=== PATIENT | female | born 1995 | race Caucasian/White ===

== ENCOUNTER 2019-01-14 01:40 | Emergency (ER) | payer SELFPAY ==
[2019-01-14] MEDS ORDERED: Ondansetron 4 MG Tab.DIS PO ONE (02:56)
--- NOTE | 2019-01-14 04:51 | EDM.PDOC ---
ED HPI GENERAL MEDICAL PROBLEM - General Chief Complaint: Abdominal Pain Stated Complaint: VOMITTING Time Seen by Provider: 01/14/19 03:00 - History of Present Illness INITIAL COMMENTS - FREE TEXT/NARRATIVE: HISTORY AND PHYSICAL: History of present illness: Patient's 23-year-old white female presents with a concern of abdominal pain she denies fever chills denies diarrhea denies other concern there's been no trauma Review of systems: As per history of present illness and below otherwise all systems reviewed and negative. Past medical history: As per history of present illness and as reviewed below otherwise noncontributory. Surgical history: As per history of present illness and as reviewed below otherwise noncontributory. Social history: No reported history of drug or alcohol abuse. Family history: As per history of present illness and as reviewed below otherwise noncontributory. Physical exam: HEENT: Atraumatic, normocephalic, pupils reactive, negative for conjunctival pallor or scleral icterus, mucous membranes moist, throat clear, neck supple, nontender, trachea midline. Lungs: Clear to auscultation, breath sounds equal bilaterally, chest nontender. Heart: S1S2, regular, negative for clicks, rubs, or JVD. Abdomen: Soft, nondistended, nontender. Negative for masses or hepatosplenomegaly. Negative for costovertebral tenderness. Pelvis: Stable nontender. Genitourinary: Deferred. Rectal: Deferred. Extremities: Atraumatic, negative for cords or calf pain. Neurovascular unremarkable. Neuro: Awake, alert, oriented. Cranial nerves II through XII unremarkable. Cerebellum unremarkable. Motor and sensory unremarkable throughout. Exam nonfocal. Diagnostics: CBC CMP hCG UA lipase Therapeutics: Zofran 4 mg by mouth Impression: #1 abdominal pain Definitive disposition and diagnosis as appropriate pending reevaluation and review of above. body aches/abdomen Pain Score (Numeric/FACES): 8 - Related Data Allergies Allergy/AdvReac Type Severity Reaction Status Date / Time No Known Allergies Allergy Verified 01/14/19 02:57 Home Meds: Home Meds . 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 Musculoskeletal History: Reports: None Neurological History: Reports: None Psychiatric History: Reports: Anxiety Endocrine/Metabolic History: Reports: None Hematologic History: Reports: None Immunologic History: Reports: None Oncologic (Cancer) History: Reports: None Dermatologic History: Reports: None - Past Surgical History Head Surgeries/Procedures: Reports: None HEENT Surgical History: Reports: Tonsillectomy Cardiovascular Surgical History: Reports: None Respiratory Surgical History: Reports: None GI Surgical History: Reports: None Female Surgical History: Reports: None Endocrine Surgical History: Reports: None Neurological Surgical History: Reports: None Musculoskeletal Surgical History: Reports: None Oncologic Surgical History: Reports: None Dermatological Surgical History: Reports: None Social & Family History - Family History Family Medical History: Noncontributory - Tobacco Use Smoking Status *Q: Never Smoker Second Hand Smoke Exposure: No - Caffeine Use Caffeine Use: Reports: Coffee, Energy Drinks, Soda - Recreational Drug Use Recreational Drug Use: No ED ROS GENERAL - Review of Systems Review Of Systems: ROS reveals no pertinent complaints other than HPI. ED EXAM, GENERAL - Physical Exam Exam: See Below (See dictation) Course - Vital Signs Last Recorded V/S: Last Vital Signs Temp 36.3 C 01/14/19 03:20 Pulse 73 01/14/19 03:20 Resp 18 01/14/19 03:20 BP 114/68 01/14/19 03:20 Pulse Ox 98 01/14/19 03:20 - Orders/Labs/Meds Orders: Active Orders 24 hr Category Date Time Status COMPREHENSIVE METABOLIC PN,CMP [CHEM] Stat Lab 01/14/19 02:56 Ordered CULTURE STREP A CONFIRMATION [RM] Stat Lab 01/14/19 01:58 Results STREP SCRN A RAPID W CULT CONF [RM] Stat Lab 01/14/19 01:58 Results Labs: Laboratory Tests 01/14/19 Range/Units 02:05 WBC 8.85 (4.0-11.0) K/uL RBC 4.65 (4.30-5.90) M/uL Hgb 14.1 (12.0-16.0) g/dL Hct 40.0 (36.0-46.0) % MCV 86.0 (80.0-98.0) fL MCH 30.3 (27.0-32.0) pg MCHC 35.3 (31.0-37.0) g/dL RDW Std Deviation 36.9 (28.0-62.0) fl RDW Coeff of [place] 12 (11.0-15.0) % Plt Count 192 (150-400) K/uL MPV 11.50 (7.40-12.00) fL Neut % (Auto) 57.5 (48.0-80.0) % Lymph % (Auto) 34.8 (16.0-40.0) % [place] % (Auto) 6.8 (0.0-15.0) % Eos % (Auto) 0.7 (0.0-7.0) % Baso % (Auto) 0.2 (0.0-1.5) % Neut # (Auto) 5.1 (1.4-5.7) K/uL Lymph # (Auto) 3.1 H (0.6-2.4) K/uL [place] # (Auto) 0.6 (0.0-0.8) K/uL Eos # (Auto) 0.1 (0.0-0.7) K/uL Baso # (Auto) 0.0 (0.0-0.1) K/uL Meds: Medications Discontinued Medications Generic Name Dose Route Start Last Admin Trade Name Freq PRN Reason Stop Dose Admin Ondansetron HCl 4 mg 01/14/19 02:56 01/14/19 03:02 Zofran Odt PO 01/14/19 02:57 4 mg ONETIME ONE Administration Departure - Departure Time of Disposition: 04:50 Disposition: Home, Self-Care 01 Condition: Good Clinical Impression: Vomiting - Discharge Information Instructions: Vomiting, Adult Referrals: PCP,None [Primary Care Provider] - Forms: ED Department Discharge Additional Instructions: Follow up with primary care provider, and return to ED with new or worsening symptoms. Push fluids - My Orders Last 24 Hours: My Active Orders 01/14/19 01:58 CULTURE STREP A CONFIRMATION [RM] Stat STREP SCRN A RAPID W CULT CONF [RM] Stat 01/14/19 02:56 COMPREHENSIVE METABOLIC PN,CMP [CHEM] Stat - Assessment/Plan Last 24 Hours: My Active Orders 01/14/19 01:58 CULTURE STREP A CONFIRMATION [RM] Stat STREP SCRN A RAPID W CULT CONF [RM] Stat 01/14/19 02:56 COMPREHENSIVE METABOLIC PN,CMP [CHEM] Stat
[2019-01-14 05:08] LABS: CHLORIDE,CL 105 mmol/L (98-107); SODIUM,NA 139 mmol/L (136-145)
== END 2019-01-14 03:20 | disposition home or self-care (01) ==
LOC: MW.ED 01:40
DX: R11.10 Vomiting, unspecified (principal)
CPT/HCPCS: 36415; 80053; 85025; 87081; 87880; 99284; A9270

== ENCOUNTER 2022-07-23 23:27 | Emergency (ER) | payer OTHER | END 2022-07-24 01:13 | disposition home or self-care (01) | LOC: MW.ED 23:27 | DX: O9A.212 Injury, poisoning and certain other consequences of external causes complicating pregnancy, second trimester (principal); S39.91XA Unspecified injury of abdomen, initial encounter; Z3A.25 25 weeks gestation of pregnancy; W18.39XA Other fall on same level, initial encounter; Y99.0 Civilian activity done for income or pay | CPT/HCPCS: 76815; 76815-26; 99283; 99284 ==

== ENCOUNTER 2022-10-29 04:59 | Inpatient (IN) | payer OTHER ==
[2022-10-29] MEDS ORDERED: Tranexamic Acid 1,000 MG in Sodium Chloride 0.9% 100 ML IV PRN (05:13)
[2022-10-29] MEDS ORDERED: Butorphanol 1 MG/ML SDV IVPUSH PRN (05:13)
[2022-10-29] MEDS ORDERED: Water For Irrigation,Sterile 1,000 ML Container IRR PRN (05:13)
[2022-10-29] MEDS ORDERED: Misoprostol 200 MCG Tab PO PRN (05:13)
[2022-10-29] MEDS ORDERED: Sodium Chloride 0.9% 2.5 ML Syringe FLUSH PRN (05:13)
[2022-10-29] MEDS ORDERED: Lidocaine 1% 50 ML MDV INJECT PRN (05:13)
[2022-10-29] MEDS ORDERED: Methylergonovine 0.2 MG/1 ML Amp IM PRN (05:13)
[2022-10-29] MEDS ORDERED: Sodium Chloride 0.9% 10 ML Syringe FLUSH PRN (05:13)
[2022-10-29] MEDS ORDERED: Carboprost Tromethamine 250 MCG/1 ML Amp IM PRN (05:13)
[2022-10-29] MEDS ORDERED: Sodium Chloride 0.9% 20 ML SDV IV PRN (05:13)
[2022-10-29] MEDS ORDERED: Ondansetron 4 MG/2 ML SDV IVPUSH PRN (05:13)
[2022-10-29] MEDS ORDERED: Terbutaline 1 MG/ML SDV SUBCUT PRN (05:13)
[2022-10-29] MEDS ORDERED: Oxytocin/0.9 % Sodium Chloride 30 UNIT/500 ML BAG IV SCH ×2 (05:15)
[2022-10-29] MEDS: Lactated Ringers 1,000 ML IV SCH ×2 (06:04→12:45)
[2022-10-29] MEDS ORDERED: ePHEDrine 50 MG/ML SDV IVPUSH PRN ×2 (09:48)
[2022-10-29] MEDS ORDERED: Phenylephrine HCl 0.5 MG/5 ML AMP IVPUSH PRN (09:48)
[2022-10-29] MEDS ORDERED: Ropivacaine HCl/PF 400 MG in Premix Bag 1 BAG EPIDUR SCH (10:00)
[2022-10-29] MEDS ORDERED: Docusate Sodium 100 MG Cap PO PRN (13:33)
[2022-10-29] MEDS ORDERED: Acetaminophen 500 MG Tab PO PRN ×2 (13:33)
[2022-10-29] MEDS ORDERED: Lanolin 100% Cream 7 GM Tube TOP PRN (13:33)
[2022-10-29] MEDS ORDERED: Ibuprofen 400 MG Tab PO PRN (13:33)
[2022-10-29] MEDS ORDERED: Benzocaine/Menthol 20%-0.5% Spray 78 GM Cannister TOP PRN (13:33)
[2022-10-29] MEDS ORDERED: Ibuprofen 800 MG Tab PO PRN (13:33)
[2022-10-29] MEDS ORDERED: oxyCODONE 5 MG Tab PO PRN (13:33)
[2022-10-29] MEDS ORDERED: Bisacodyl 10 MG Supp RECTAL PRN (13:33)
[2022-10-29] MEDS ORDERED: Witch Hazel Medicated Pads 40/Jar TOP PRN (13:33)
== END 2022-10-30 15:00 | disposition home or self-care (01) | DRG 807 ==
LOC: MW.OBCHECK 04:59 → MW.OB 05:00 → MW.OBCHECK 05:14 → MW.OB 05:14 → OBSVTOIN 13:15 → MW.OB 17:34
PROVIDERS: ADMIT Obstetrics & Gynecology; ATTEND Obstetrics & Gynecology
PROC: 10E0XZZ Delivery of Products of Conception, External Approach (ICD-10-PCS; principal; 2022-10-28)
PROC: 10907ZC Drainage of Amniotic Fluid, Therapeutic from Products of Conception, Via Natural or Artificial Opening (ICD-10-PCS; 2022-10-28)
PROC: 3E033VJ Introduction of Other Hormone into Peripheral Vein, Percutaneous Approach (ICD-10-PCS; 2022-10-28)
DX: O99.214 Obesity complicating childbirth (principal); O77.0 Labor and delivery complicated by meconium in amniotic fluid; Z37.0 Single live birth; Z3A.39 39 weeks gestation of pregnancy
CPT/HCPCS: 36415; 59025; 59409; 82803; 85014; 85018; 85027; 86592; 86850; 86900; 86901; A9270-GY; J2590; J7120